=== PATIENT | male | born 1985 | race Caucasian/White ===

== ENCOUNTER → 2016-11-10 01:00 | Emergency (ER) | payer OTHER ==
[~2016-11-10 01:00] MED LIST: MEDROL PO; NAPROSYN500 MG PO; NAPROXEN PO; NO MEDICATIONS; PYRIDIUM PO
== END | disposition home or self-care (01) ==
LOC: CED 01:00
DX: Z53.21 Procedure and treatment not carried out due to patient leaving prior to being seen by health care provider (principal)